=== PATIENT | female | born 1945 | race Native Hawaiian/Other Pacific Islander ===

== ENCOUNTER → 2017-02-12 | Outpatient (CLI) | payer OTHER | LOC: FIMAGING 14:23 | PROVIDERS: ATTEND Internal Medicine | DX: Z12.31 Encounter for screening mammogram for malignant neoplasm of breast (principal); Z85.3 Personal history of malignant neoplasm of breast; Z90.11 Acquired absence of right breast and nipple | CPT/HCPCS: G0202-52 ==

== ENCOUNTER → 2017-08-20 | Outpatient (CLI) | payer OTHER ==
[~2017-08-20] MED LIST: IOPAMIDOL (ISOVUE-300) 150 ML BTL ONE
== END ==
LOC: FIMAGING 13:33
PROVIDERS: ATTEND Urology
DX: N20.0 Calculus of kidney (principal); R93.422 Abnormal radiologic findings on diagnostic imaging of left kidney; Z85.3 Personal history of malignant neoplasm of breast
CPT/HCPCS: 74178; Q9967

== ENCOUNTER → 2018-02-19 | Outpatient (CLI) | payer OTHER | LOC: FIMAGING 12:57 | PROVIDERS: ATTEND Internal Medicine | DX: Z12.31 Encounter for screening mammogram for malignant neoplasm of breast (principal); Z80.3 Family history of malignant neoplasm of breast; Z90.11 Acquired absence of right breast and nipple ==